=== PATIENT | male | born 1980 | race Caucasian/White ===

== ENCOUNTER 2019-02-11 07:23 | Emergency (ER) | payer BC, MEDICAID ==
[~2019-02-11] VITALS: Ht 182.9 cm; Wt 79.4 kg
[2019-02-11 07:23] VITALS: BP 140/66
--- NOTE | 2019-02-11 08:25 | NUR ---
No acute changes from baseline Patient discharged to home in stable condition. Written and verbal after care instructions given. Patient verbalizes understanding of instruction.
== END 2019-02-11 08:30 | disposition home or self-care (01) ==
LOC: ER 08:16
DX: S16.1XXA Strain of muscle, fascia and tendon at neck level, initial encounter (principal); V49.40XA Driver injured in collision with unspecified motor vehicles in traffic accident, initial encounter; Y93.89 Activity, other specified; Y92.488 Other paved roadways as the place of occurrence of the external cause; Y99.8 Other external cause status